=== PATIENT | female | born 1995 | race Caucasian/White ===

== ENCOUNTER 2016-05-29 21:51 | Inpatient (IN) | payer OTHER ==
[~2016-05-29] VITALS: Ht 172.7 cm; Wt 68.8 kg
[2016-05-29] MEDS ORDERED: FLUT16H NASAL (22:02)
[2016-05-29 22:17] LABS: BASOPHILS # (AUTO) 0.03 K/uL (0.00-0.20); BASOPHILS % (AUTO) 0.4 % (0.0-2.0); EOSINOPHILS # (AUTO) 0.12 K/uL (0.00-0.70); EOSINOPHILS % (AUTO) 1.34 % (1.0-6.0); HEMATOCRIT 38.3 % (36-46); HEMOGLOBIN 12.7 g/dL (12.0-16.0); LYMPHOCYTES # (AUTO) 2.2 K/uL (1.0-4.8); LYMPHOCYTES % (AUTO) 24.8 % (22.0-44.0); MEAN CORPUSCULAR HEMOGLOBIN 29.3 pg (26.0-34.0); MEAN CORPUSCULAR HGB CONC 33.2 G/dL (31.0-37.0); MEAN CORPUSCULAR VOLUME 88 fL (80-100); MONOCYTES # (AUTO) 0.7 K/uL (0.1-1.0); MONOCYTES % (AUTO) 7.9 % (2.0-9.0); NEUTROPHILS # (AUTO) 5.7 K/uL (1.8-7.7); NEUTROPHILS % (AUTO) 65.5 % (40.0-70.0); PLATELET COUNT (AUTO) 229 K/uL (150-450); RED BLOOD CELL COUNT(AUTO) 4.34 MIL/uL (4.00-5.20); WHITE BLOOD COUNT (AUTO) 8.7 K/uL (4.5-11.0)
[2016-05-29 22:26] LABS: ANION GAP 11 mmol/L (8-16); CALCIUM, TOTAL 8.9 mg/dL (8.8-10.5); CARBON DIOXIDE 23 mmol/L (22-29); CHLORIDE 104 mmol/L (98-107); CREATININE 0.88 mg/dL (0.60-1.30); GLOMERULAR FILTR. RATE CALC > 60 mL/min (>60); POTASSIUM 3.9 mmol/L (3.5-5.1); SODIUM SERUM 138 mmol/L (136-145); UREA NITROGEN, BLOOD 12 mg/dL (7-18)
[2016-05-29 22:32] LABS: ALANINE AMINOTRANSFERASE 23 U/L (12-78); ALBUMIN 3.7 g/dL (3.4-5.0); ASPARTATE AMINOTRANSFERASE 22 U/L (15-37); BILIRUBIN,TOTAL 0.2 mg/dL (0.1-1.0); TOTAL PROTEIN, SERUM 7.8 g/dL (6.4-8.2)
[2016-05-30] MEDS ORDERED: LIDOCAINE HCL BUFFERED 1% W/EPI 1:100,000 20 ML VIAL INJ ONE (01:15)
[2016-05-30] MEDS ORDERED: SODIUM CHLORIDE 0.9% 250 ML IRRIG SOLUTION BOTTLE IRRIG ONE (01:15)
[2016-05-30] MEDS ORDERED: LORazepam 2 MG TABLET PO PRN (04:30)
[2016-05-30] MEDS ORDERED: ZOLPIDEM TARTRATE 10 MG TABLET PO PRN (04:30)
[2016-05-30] MEDS ORDERED: HALOPERIDOL 5 MG TABLET PO PRN (04:30)
[2016-05-30 04:51] LABS: APPEARANCE,URINE TURBID (CLEAR); GLUCOSE, URINE (UA) NEGATIVE (NEGATIVE); KETONES,URINE NEGATIVE (NEGATIVE); LEUKOCYTE ESTERASE ,URINE SMALL (NEGATIVE); OCCULT BLOOD,URINE MODERATE (NEGATIVE); PROTEIN,URINE NEGATIVE (NEGATIVE)
[2016-05-30 04:52] LABS: ADD UA MICROSCOPIC YES
[2016-05-30 05:04] LABS: SQUAMOUS EPITHELIAL CELL,UR Few /LPF (None Seen)
[2016-05-30 05:10] VITALS: BP 141/99
[2016-05-30] MEDS ORDERED: INFLUENZA VIRUS VACCINE QVS 2016-17 (3YR+)/PF 60 MCG/0.5 ML SYRINGE IM ONE (05:45)
[2016-05-30] MEDS ORDERED: IBUPROFEN 400 MG TABLET PO PRN (07:15)
[2016-05-30] MEDS ORDERED: ACETAMINOPHEN 325 MG TABLET PO PRN (07:15)
[2016-05-30 08:30] VITALS: BP 105/56
[2016-05-30] MEDS: CIPROFLOXACIN HCL 250 MG TABLET PO SCH (16:25)
[2016-05-30] MEDS ORDERED: HydrOXYzine PAMOATE 50 MG CAPSULE PO PRN (17:45)
[2016-05-30 19:07] VITALS: BP 117/85
[2016-05-30] MEDS: QUEtiapine FUMARATE 200 MG TABLET PO SCH (20:49)
[2016-05-30] MEDS: LamoTRIgine 100 MG TABLET PO SCH (20:49)
[2016-05-30] MEDS: ESCITALOPRAM OXALATE 20 MG TABLET PO SCH (20:49)
[2016-05-31 07:23] LABS: HEMOGLOBIN A1C 4.8 % (4.5-6.2)
[2016-05-31 07:29] LABS: CHOL/HDL RATIO 3.5 (3.9-5.7); THYROID STIMULATING HORMONE 0.56 uIU/mL (0.36-3.74)
[2016-05-31 08:30] VITALS: BP 99/66
[2016-05-31] MEDS: PROPRANOLOL HCL 20 MG TABLET PO SCH ×3 (09:00→16:49)
[2016-05-31] MEDS: CIPROFLOXACIN HCL 250 MG TABLET PO SCH ×2 (10:53→16:49)
[2016-05-31] MEDS: BuPROPion HCL XL 150 MG ER TABLET PO SCH (10:53)
[2016-05-31] MEDS: MODAFINIL 100 MG TABLET PO SCH ×2 (10:53→12:44)
[2016-05-31] MEDS: LamoTRIgine 100 MG TABLET PO SCH ×2 (10:53→20:29)
[2016-05-31] MEDS: FLUTICASONE PROPIONATE 50 MCG/SPRAY 16 GM NASAL SPRAY NASAL SCH (11:02)
[2016-05-31 13:53] VITALS: BP 131/79
[2016-05-31 16:57] VITALS: BP 121/73
[2016-05-31] MEDS: ESCITALOPRAM OXALATE 20 MG TABLET PO SCH (20:29)
[2016-05-31] MEDS: QUEtiapine FUMARATE 200 MG TABLET PO SCH (20:29)
[2016-06-01 08:30] VITALS: BP 130/83
[2016-06-01] MEDS: MODAFINIL 100 MG TABLET PO SCH ×2 (09:38→12:31)
[2016-06-01] MEDS: CIPROFLOXACIN HCL 250 MG TABLET PO SCH (09:39)
[2016-06-01] MEDS: LamoTRIgine 100 MG TABLET PO SCH (09:39)
[2016-06-01] MEDS: PROPRANOLOL HCL 20 MG TABLET PO SCH ×2 (09:39→12:32)
[2016-06-01] MEDS: BuPROPion HCL XL 150 MG ER TABLET PO SCH (09:42)
[2016-06-01] MEDS: FLUTICASONE PROPIONATE 50 MCG/SPRAY 16 GM NASAL SPRAY NASAL SCH (09:43)
[2016-06-01] MEDS ORDERED: BUPR-93 PO (14:09)
[2016-06-01] MEDS ORDERED: CIP250 PO (14:10)
[2016-06-01] MEDS ORDERED: ESCI20TA PO (14:10)
[2016-06-01] MEDS ORDERED: QUET200T PO (14:11)
[2016-06-01] MEDS ORDERED: LAMO100 PO (14:14)
[2016-06-01] MEDS ORDERED: MODA100 PO (14:15)
[2016-06-01] MEDS ORDERED: PROP20 PO (14:16)
== END 2016-06-01 14:47 | disposition home or self-care (01) | DRG 885 ==
LOC: EEVIPCON 21:53 → EMS 21:53 → 3EI 05-30 04:20
PROC: 0HQJXZZ Repair Left Upper Leg Skin, External Approach (ICD-10-PCS; principal; 2016-05-30)
DX: F31.4 Bipolar disorder, current episode depressed, severe, without psychotic features (principal); N39.0 Urinary tract infection, site not specified; R45.851 Suicidal ideations; F10.10 Alcohol abuse, uncomplicated; F17.210 Nicotine dependence, cigarettes, uncomplicated; F43.10 Post-traumatic stress disorder, unspecified; F90.9 Attention-deficit hyperactivity disorder, unspecified type; I10 Essential (primary) hypertension; J30.9 Allergic rhinitis, unspecified; F41.9 Anxiety disorder, unspecified; S71.112A Laceration without foreign body, left thigh, initial encounter; X78.0XXA Intentional self-harm by sharp glass, initial encounter; Y93.89 Activity, other specified; Y92.89 Other specified places as the place of occurrence of the external cause; Y99.8 Other external cause status; Z28.21 Immunization not carried out because of patient refusal; Z71.41 Alcohol abuse counseling and surveillance of alcoholic; Z91.5 Personal history of self-harm; Z79.899 Other long term (current) drug therapy
CPT/HCPCS: 12002; 83036; 84443; 99285; G0480; J3490